=== PATIENT | male | born 1965 | race Caucasian/White ===

== ENCOUNTER 2016-12-03 05:42 | Outpatient (CLI) | payer BC ==
[~2016-12-03] VITALS: Ht 182.9 cm; Wt 83.9 kg
[~2016-12-03 05:42] MED LIST: CIPR500T4 PO; HYDR1TAB PO; METH4TAB PO; NAPR220C11 PO; TRAM50TA2 PO
== END 2016-12-03 10:42 ==
LOC: PREOP 05:42
PROVIDERS: ATTEND Surgery
DX: Z01.818 Encounter for other preprocedural examination (principal); Z12.11 Encounter for screening for malignant neoplasm of colon

== ENCOUNTER 2016-12-05 09:39 | Day surgery (SDC) | payer BC ==
[2016-12-05] MEDS ORDERED: LACTATED RINGERS 1,000 ML IV ONE (09:47)
[2016-12-05 09:55] VITALS: BP 118/84
[2016-12-05] MEDS ORDERED: LACTATED RINGERS 1,000 ML IV SCH (10:00)
[2016-12-05] MEDS ORDERED: proPOfol 200 MG/20 ML (DIPRIVAN) VIAL IV ONE (10:08)
[2016-12-05] MEDS ORDERED: MIDAZOLAM 5 MG/5 ML (VERSED) VIAL ONE (10:08)
--- NOTE | 2016-12-05 10:16 | Progress Note-Pre Operative ---
Pre-Operative Progress Note H&P Reviewed The H&P was reviewed, patient examined and no changes noted. Date Seen by Provider: Dec 05, 2016 Time Seen by Provider: 10:15 Date H&P Reviewed: Dec 05, 2016 Time H&P Reviewed: 10:15 Pre-Operative Diagnosis: screening colonoscopy MARK SR DO Dec 05, 2016 10:16 am
--- NOTE | 2016-12-05 10:45 | Discharge Inst-Simple/Standard ---
Discharge Inst-Standard Patient Instructions/Follow Up Plan of Care/Instructions/FU: Follow up with Dr. Barrientos as needed Repeat colonoscopy in 10 years or sooner if family hixtory of colon cancer or changes in current conditions. Activity as Tolerated: Yes Discharge Diet: No Restrictions WESTLEY JUAREZ APRN Dec 05, 2016 10:45
--- NOTE | 2016-12-05 10:54 | Progress Note-Post Operative ---
Post-Operative Progess Note Surgeon (s)/Grief Counselor (s) Surgeon MARK SR DO Grief Counselor: na Pre-Operative Diagnosis screening colonoscopy Post-Operative Diagnosis normal colon Procedure & Operative Findings Date of Procedure 12/05/16 Procedure Performed/Findings colonoscopy Anesthesia Type per back hand Estimated Blood Loss Estimated blood loss (mL): none Specimens/Packing Specimens Removed na MARK SR DO Dec 05, 2016 10:54 am
[2016-12-05 11:10] VITALS: BP 107/64
[2016-12-05 11:25] VITALS: BP 109/78
[2016-12-05 11:30] VITALS: BP 109/78
--- NOTE | 2016-12-05 11:32 | OPERATIVE REPORT ---
DATE OF SERVICE: 12/05/2016 PREOPERATIVE DIAGNOSIS: Screening colonoscopy. POSTOPERATIVE DIAGNOSIS: Normal colon. PROCEDURE: Colonoscopy. SURGEON: Mark Barrientos DO ANESTHESIA: Per CAMPUS ADMINISTRATIVE ASSISTANT. ESTIMATED BLOOD LOSS: None. COMPLICATIONS: None. INDICATIONS: The patient is a 51-year-old male in need of screening colonoscopy, understands risks and benefits of procedure and wishes to proceed with procedure. Consent was signed and on the chart. DESCRIPTION OF PROCEDURE: The patient was taken to the endoscopy suite, placed in left lateral recumbent position. Timeout was performed. Digital rectal exam was performed. There were no palpable polyps, masses or ulcerations. Scope was inserted in the rectum and advanced all the way to the cecum with minimal difficulty. Her prep was adequate. Scope was then slowly retracted back. There were no polyps, masses or ulcerations in the cecum, ascending, transverse, descending and sigmoid colon. In the rectum, the scope was also retroflexed noting no other pathology. Scope was returned to its normal position, slowly withdrawn until completely removed. The patient tolerated the procedure well without any complications and was taken to recovery room in stable condition. RECOMMENDATIONS: The patient will need repeat colonoscopy in 10 years unless he has a family history of colon cancer, which would then be 5 years. If he has any problems prior to that, he should be reevaluated at that time. Job ID: [id number] DocumentID: [id number] Dictated Date: 12/05/2016 10:56:26 Jig Fitter Date: 12/05/2016 11:31:46 Dictated By: MARK BARRIENTOS DO
== END 2016-12-05 11:30 | disposition home or self-care (01) ==
LOC: ENDO 09:39
PROVIDERS: ATTEND Surgery
DX: Z12.11 Encounter for screening for malignant neoplasm of colon (principal); F17.210 Nicotine dependence, cigarettes, uncomplicated; F41.9 Anxiety disorder, unspecified; Z79.899 Other long term (current) drug therapy